=== PATIENT | female | born 1980 | race Caucasian/White ===

== ENCOUNTER 2022-02-05 18:33 | Inpatient (IN) ==
[2022-02-05 19:44] LABS: Basophils % 0.2 %; Eosinophils # 0.1 K/mcL (0.0-0.6); Eosinophils % 0.4 %; Hematocrit 35.6 % (35.3-44.9); Hemoglobin 12.4 g/dL (11.5-15.4); Immature Granulocytes % 0.3 % (0-4); Lymphocytes # 4.4 K/mcL (0.6-4.6); Lymphocytes % 32.6 %; Mean Corpuscular HGB Conc 34.8 g/dL (31.6-35.5); Mean Corpuscular Hemoglobin 30.8 pg (28.0-33.3); Mean Corpuscular Volume 88.3 fL (83.0-100.0); Mean Platelet Volume 9.9 fL (9.4-12.4); Monocytes # 0.9 K/mcL (0.0-1.3); Monocytes % 6.6 %; Neutrophils # 8.1 K/mcL (1.6-8.9); Platelet Count 245 K/mcL (140-400); Red Blood Count 4.03 M/mcL (3.82-4.97); Red Cell Distribution Width 11.9 % (11.5-14.5); Segmented Neutrophils % 59.9 %; White Blood Count 13.6 K/mcL (4.3-11.1)
[2022-02-05 20:10] LABS: Amphetamine Screen,Urine Negative ng/mL (Cutoff=1000); Barbiturate Screen,Urine Negative ng/mL (Cutoff=200); Benzodiazepines Screen,Urine Negative ng/mL (Cutoff=200); Cannabinoid Screen,Urine Negative ng/mL (Cutoff = 50); Cocaine Screen,Urine Negative ng/mL (Cutoff= 300); Opiate Screen,Urine Positive ng/mL (Cutoff=300); Phencyclidine Screen,Urine Negative ng/mL (Cutoff=25)
[2022-02-05 22:39] LABS: BUN/Creatinine Ratio 17 (6-26); Blood Urea Nitrogen 12 mg/dL (6-20); Calcium 9.5 mg/dL (8.6-10.3); Carbon Dioxide 26 mEq/L (23-29); Chloride 108 mEq/L (98-107); Glucose 93 mg/dL (70-105); Osmolality,Calculated 295 (280-300); Potassium 3.3 mEq/L (3.5-5.1); Sodium 143 mEq/L (136-145)
[2022-02-05 23:06] LABS: Influenza A PCR Negative (Negative); Influenza B PCR Negative (Negative); Resp. Syncytial Virus PCR Negative (Negative)
[2022-02-05 23:08] LABS: SARS-CoV-2 by PCR (In House) Negative (Negative)
[2022-02-05] MEDS ORDERED: Haloperidol Lactate 5 MG/ML VIAL IM PRN (23:58)
[2022-02-05] MEDS ORDERED: Acetaminophen 325 MG TABLET PO PRN (23:58)
[2022-02-05] MEDS ORDERED: MOM Conc 10 ML UD.LIQ PO PRN (23:58)
[2022-02-05] MEDS ORDERED: haloperidoL 5 MG TABLET PO PRN (23:58)
[2022-02-05] MEDS ORDERED: *HR* LORazepam 1 MG TABLET PO PRN (23:58)
[2022-02-05] MEDS ORDERED: QUEtiapine Fumarate 25 MG TABLET PO PRN (23:58)
[2022-02-05] MEDS ORDERED: Mag Hydrox/Al Hydrox/Simeth 30 ML UDC PO PRN (23:58)
[2022-02-05] MEDS ORDERED: *HR* LORazepam 2 MG/ML VIAL IM PRN (23:58)
[2022-02-06] MEDS: hydrOXYzine pamoate 25 MG CAPSULE PO PRN (01:04)
[2022-02-06] MEDS: *HR* HYDROcodone/Acet 5/325 mg TABLET PO PRN (15:31)
[2022-02-06] MEDS ORDERED: QUEtiapine Fumarate 100 MG TABLET PO SCH (21:00)
[2022-02-07] MEDS: *HR* HYDROcodone/Acet 5/325 mg TABLET PO PRN ×2 (08:30→20:34)
[2022-02-07] MEDS: hydrOXYzine pamoate 25 MG CAPSULE PO PRN (08:54)
[2022-02-07] MEDS: QUEtiapine Fumarate 100 MG TABLET PO SCH (20:33)
[2022-02-08] MEDS: *HR* HYDROcodone/Acet 5/325 mg TABLET PO PRN ×2 (08:39→20:38)
[2022-02-08] MEDS: hydrOXYzine pamoate 25 MG CAPSULE PO PRN (10:20)
[2022-02-08] MEDS: QUEtiapine Fumarate 100 MG TABLET PO SCH (20:38)
[2022-02-08 22:23] VITALS: O2SAT 97
[2022-02-09] MEDS: *HR* HYDROcodone/Acet 5/325 mg TABLET PO PRN (08:38)
[2022-02-09 09:37] VITALS: BP 124/80; PULSE 83; TEMP 97.1
== END 2022-02-09 14:35 | disposition home or self-care (01) | DRG 753 ==
LOC: EMEROOARM 18:33 → 1ANU 23:55
PROVIDERS: ADMIT Psychiatry & Neurology Forensic Psychiatry; ATTEND Psychiatry & Neurology Forensic Psychiatry